=== PATIENT | female | born 1930 | race Caucasian/White ===

== ENCOUNTER 2021-02-03 13:24 | Observation (INO) ==
[2021-02-03 14:47] LABS: Bacteria,Urine Few per hpf (None-Few); Bilirubin,Urine Negative (Negative); Blood,Urine Moderate (Negative); Clarity,Urine Turbid (Clear); Color,Urine Yellow (Yellow); Glucose,Urine (UA) Normal (Normal); Ketones,Urine 10 mg/dL (Negative); Leukocyte Esterase,Urine Negative (Negative); Mucus,Urine Few per lpf (None-Few); Nitrite,Urine Negative (Negative); Protein,Urine 100 mg/dL (Neg-Trace); Specific Gravity,Urine > 1.030 (1.010-1.025); Squamous Epithelial Cell,Urine Few per hpf (None-Few); Urobilinogen,Urine Normal (Normal); WBC,Urine 0-3 per hpf (0-3)
[2021-02-03 14:51] LABS: Mean Corpuscular Volume 91.3 fL (83.0-100.0); Red Cell Distribution Width 13.2 % (11.5-14.5)
[2021-02-03 14:53] LABS: Hematocrit 39.7 % (35.3-44.9); Immature Platelets 4.4 % (1.1-6.1); Lymphocytes # 0.2 K/mcL (0.6-4.6); Lymphocytes % 9.9 %; Mean Corpuscular HGB Conc 32.7 g/dL (31.6-35.5); Mean Corpuscular Hemoglobin 29.9 pg (28.0-33.3); Mean Platelet Volume 10.4 fL (9.4-12.4); Monocytes # 0.1 K/mcL (0.0-1.3); Monocytes % 3.5 %; Neutrophils # 1.5 K/mcL (1.6-8.9); Red Blood Count 4.35 M/mcL (3.82-4.97); Segmented Neutrophils % 86.6 %; White Blood Count 1.7 K/mcL (4.3-11.1)
[2021-02-03 14:57] LABS: Amphetamine Screen,Urine Negative ng/mL (Cutoff=1000); Barbiturate Screen,Urine Negative ng/mL (Cutoff=200); Benzodiazepines Screen,Urine Negative ng/mL (Cutoff=200); Cannabinoid Screen,Urine Negative ng/mL (Cutoff = 50); Cocaine Screen,Urine Negative ng/mL (Cutoff= 300); Opiate Screen,Urine Negative ng/mL (Cutoff=300); Phencyclidine Screen,Urine Negative ng/mL (Cutoff=25)
[2021-02-03 15:10] LABS: Alanine Aminotransferase 37 Units/L (7-52); Albumin/Globulin Ratio 1.5 (1.1-2.2); Alkaline Phosphatase 69 Units/L (34-104); Aspartate Amino Transferase 82 Units/L (13-39); BUN/Creatinine Ratio 23 (6-26); Bilirubin,Direct 0.2 mg/dL (0.0-0.2); Bilirubin,Indirect 0.5 mg/dL (0.0-1.0); Bilirubin,Total 0.7 mg/dL (0.3-1.0); Blood Urea Nitrogen 23 mg/dL (8-23); Calcium 8.8 mg/dL (8.6-10.3); Carbon Dioxide 25 mEq/L (23-29); Chloride 96 mEq/L (98-107); Ethanol < 10 mg/dL (Less than 10); Globulin 2.6 g/dL (2.4-3.5); Glucose 124 mg/dL (70-105); Osmolality,Calculated 283 (280-300); Potassium 3.8 mEq/L (3.5-5.1); Sodium 134 mEq/L (136-145); Total Protein 6.6 g/dL (6.4-8.9); Troponin I < 0.03 ng/mL (< 0.04); eGFR For African Americans > 60 (> 60); eGFR For Non-African Americans 52 (> 60)
[2021-02-03 15:17] LABS: Platelet Count 44 K/mcL (140-400)
[2021-02-03 15:18] LABS: Platelet Estimate Decreased (Normal)
[2021-02-03 17:29] LABS: Anisocytosis 1+ (Not Present); Microcytosis Present (Not Present)
[2021-02-03] MEDS ORDERED: Naloxone 0.4 MG/ML INJ IVP PRN (17:32)
[2021-02-03] MEDS ORDERED: Gadolinium Contrast Agent (WT Based) IV PRN (17:59)
[2021-02-03 19:07] LABS: Thyroid Stimulating Hormone 0.263 mcIU/mL (0.340-5.600)
[2021-02-03 19:23] LABS: Folate > 22.3 ng/mL (3.0-16.0); Vitamin B12 298 pg/mL (250-1100)
[2021-02-03 21:39] LABS: % Iron Saturation 5 % (15-50); Iron 13 mcg/dL (50-170); Lactate Dehydrogenase 362 Units/L (140-271); Transferrin 178 mg/dL (203-362)
[2021-02-03 21:57] LABS: Ferritin 1326 ng/mL (10-120)
[2021-02-03 22:15] LABS: Hepatitis B Surface Antigen Nonreactive (Nonreactive)
[2021-02-03 22:44] LABS: Hepatitis C Virus Antibody Nonreactive (Nonreactive)
[2021-02-03 22:45] LABS: Hepatitis B Core IgM Nonreactive (Nonreactive)
[2021-02-03 22:46] LABS: Hepatitis A Antibody IgM Nonreactive (Nonreactive)
[2021-02-04 05:09] LABS: Red Cell Distribution Width 13.2 % (11.5-14.5)
[2021-02-04 05:11] LABS: Basophils % 0.7 %; Hematocrit 36.1 % (35.3-44.9); Immature Granulocytes % 0.7 % (0-4); Immature Platelets 6.1 % (1.1-6.1); Lymphocytes # 0.3 K/mcL (0.6-4.6); Lymphocytes % 19.6 %; Mean Corpuscular HGB Conc 33.2 g/dL (31.6-35.5); Mean Corpuscular Hemoglobin 29.6 pg (28.0-33.3); Mean Corpuscular Volume 88.9 fL (83.0-100.0); Mean Platelet Volume 10.7 fL (9.4-12.4); Monocytes # 0.1 K/mcL (0.0-1.3); Monocytes % 6.5 %; Red Blood Count 4.06 M/mcL (3.82-4.97); Segmented Neutrophils % 72.5 %; White Blood Count 1.4 K/mcL (4.3-11.1)
[2021-02-04 05:24] LABS: Platelet Count 36 K/mcL (140-400)
[2021-02-04 05:25] LABS: BUN/Creatinine Ratio 25 (6-26); Blood Urea Nitrogen 21 mg/dL (8-23); Calcium 8.3 mg/dL (8.6-10.3); Carbon Dioxide 21 mEq/L (23-29); Chloride 96 mEq/L (98-107); Glucose 96 mg/dL (70-105); Osmolality,Calculated 273 (280-300); Potassium 3.6 mEq/L (3.5-5.1); Sodium 130 mEq/L (136-145); eGFR For African Americans > 60 (> 60); eGFR For Non-African Americans > 60 (> 60)
[2021-02-04 05:56] LABS: Platelet Estimate Marked Decrease (Normal)
[2021-02-04] MEDS ORDERED: 0.9 % Sodium Chloride 1,000 ML IVC SCH (08:00)
[2021-02-04] MEDS ORDERED: Acetaminophen 325 MG TABLET PO PRN (19:42)
[2021-02-05 07:01] LABS: Basophils % 0.9 %
[2021-02-05 07:17] LABS: Mean Platelet Volume 11.2 fL (9.4-12.4)
[2021-02-05 07:19] LABS: BUN/Creatinine Ratio 30 (6-26); Blood Urea Nitrogen 27 mg/dL (8-23); Calcium 8.1 mg/dL (8.6-10.3); Carbon Dioxide 24 mEq/L (23-29); Chloride 99 mEq/L (98-107); Eosinophils % 0.9 %; Glucose 107 mg/dL (70-105); Hematocrit 33.1 % (35.3-44.9); Hemoglobin 11.4 g/dL (11.5-15.4); Immature Platelets 6.4 % (1.1-6.1); Lymphocytes # 0.4 K/mcL (0.6-4.6); Lymphocytes % 31.6 %; Mean Corpuscular HGB Conc 34.4 g/dL (31.6-35.5); Mean Corpuscular Volume 87.1 fL (83.0-100.0); Monocytes # 0.1 K/mcL (0.0-1.3); Neutrophils # 0.7 K/mcL (1.6-8.9); Osmolality,Calculated 274 (280-300); Potassium 3.3 mEq/L (3.5-5.1); Red Cell Distribution Width 13.2 % (11.5-14.5); Segmented Neutrophils % 60.6 %; Sodium 129 mEq/L (136-145); White Blood Count 1.2 K/mcL (4.3-11.1); eGFR For African Americans > 60 (> 60); eGFR For Non-African Americans 58 (> 60)
[2021-02-05] MEDS ORDERED: 0.9 % Sodium Chloride 1,000 ML IVC SCH (07:30)
[2021-02-05 07:49] LABS: Platelet Count 25 K/mcL (140-400)
[2021-02-05 07:50] LABS: Platelet Estimate Marked Decrease (Normal)
[2021-02-05] MEDS ORDERED: predniSONE 20 MG TABLET PO ONE (07:57)
[2021-02-06 01:34] LABS: Immature Granulocytes % 0.5 % (0-4)
[2021-02-06 01:35] LABS: Basophils % 2.2 %; Hematocrit 31.5 % (35.3-44.9); Hemoglobin 10.7 g/dL (11.5-15.4); Immature Platelets 10.9 % (1.1-6.1); Lymphocytes # 0.7 K/mcL (0.6-4.6); Lymphocytes % 36.2 %; Mean Corpuscular Hemoglobin 29.2 pg (28.0-33.3); Mean Corpuscular Volume 85.8 fL (83.0-100.0); Mean Platelet Volume 12.5 fL (9.4-12.4); Monocytes # 0.4 K/mcL (0.0-1.3); Monocytes % 18.9 %; Neutrophils # 0.8 K/mcL (1.6-8.9); Red Blood Count 3.67 M/mcL (3.82-4.97); Red Cell Distribution Width 12.9 % (11.5-14.5); Segmented Neutrophils % 42.2 %; White Blood Count 1.9 K/mcL (4.3-11.1)
[2021-02-06 01:46] LABS: Platelet Count 24 K/mcL (140-400)
[2021-02-06 01:53] LABS: BUN/Creatinine Ratio 27 (6-26); Blood Urea Nitrogen 27 mg/dL (8-23); Calcium 8.2 mg/dL (8.6-10.3); Carbon Dioxide 19 mEq/L (23-29); Chloride 99 mEq/L (98-107); Glucose 149 mg/dL (70-105); Osmolality,Calculated 278 (280-300); Potassium 3.7 mEq/L (3.5-5.1); Sodium 130 mEq/L (136-145); eGFR For African Americans > 60 (> 60); eGFR For Non-African Americans 52 (> 60)
[2021-02-06 02:04] LABS: Platelet Estimate Marked Decrease (Normal)
[2021-02-06] MEDS ORDERED: predniSONE 20 MG TABLET PO ONE (07:25)
[2021-02-06 07:43] VITALS: BP 111/51
[2021-02-06 19:59] LABS: Lambda Qnt Free Light Chains 12.35 mg/L (5.71-26.30)
[2021-02-07 10:24] LABS: Kappa Qnt Free Light Chains 23.24 mg/L (3.30-19.40)
== END 2021-02-06 16:33 | disposition home or self-care (01) ==
LOC: 2ANU 13:24 → EMEROOARM 13:24 → SUATTDRO 17:31 → 2ANU 18:17
PROVIDERS: ADMIT Internal Medicine; ATTEND Internal Medicine